=== PATIENT | male | born 2000 | race African-American/Black ===

== ENCOUNTER 2018-04-03 17:06 | Emergency (ER) | payer OTHER ==
[~2018-04-03] VITALS: Ht 190.5 cm; Wt 84.1 kg
[2018-04-03 17:13] VITALS: BP 145/76; Ht 190.5 cm; Wt 84.1 kg
[2018-04-03] MEDS ORDERED: FLAGYL500 MG PO (17:51)
[2018-04-03 19:07] LABS: APPEARANCE CLEAR (CLEAR); COLOR YELLOW (YELLOW)
[2018-04-03 19:08] LABS: BACTERIA FEW /hpf (NONE SEEN); BILIRUBIN NEGATIVE (NEGATIVE); EPITHELIAL CELLS NSEEN /hpf (0-5); GLUCOSE NEGATIVE (NEGATIVE); KETONE NEGATIVE (NEGATIVE); NITRITE NEGATIVE (NEGATIVE); PROTEIN NEGATIVE (NEGATIVE); RED CELLS - URINE 0-5 /hpf (0-5); SPECIFIC GRAVITY 1.015 (1.005-1.020); UROBILINOGEN NORMAL (NORMAL); WHITE CELLS - URINE 0-5 /hpf (0-5)
== END 2018-04-03 18:58 | disposition home or self-care (01) ==
LOC: D.ER 17:06
PROVIDERS: Emergency Medicine
DX: Z20.2 Contact with and (suspected) exposure to infections with a predominantly sexual mode of transmission (principal); R36.9 Urethral discharge, unspecified